=== PATIENT | female | born 1985 | race Caucasian/White ===

== ENCOUNTER 2017-05-22 05:23 | Inpatient (IN) | payer OTHER ==
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
[2017-05-22] MEDS ORDERED: ceFAZolin 2 GM/DEXTROSE 100 ML IV ONE (05:41)
[2017-05-22] MEDS ORDERED: LR 500 ML IV ONE (05:41)
[2017-05-22] MEDS ORDERED: LR 1,000 ML IV SCH (05:41)
[2017-05-22] MEDS ORDERED: CITRIC ACID/SODIUM CITRATE 30 ML UDCUP PO ONE (05:41)
[2017-05-22 05:58] LABS: PLATELET COUNT 213 10^3/uL (150-400)
[2017-05-22] MEDS ORDERED: ceFAZolin 2 GM/SWFI 2 GM/20 ML SYR IVP ONE (06:00)
[2017-05-22] MEDS ORDERED: fentaNYL 100 MCG/2 ML INJ ONE (07:55)
[2017-05-22] MEDS ORDERED: PHENYLEPHRINE HCL 100 MCG/ML SYR ONE ×2 (08:21→09:00)
[2017-05-22] MEDS ORDERED: LIDO/EPI 2% **for epidural** 20 ML SDV ONE (08:21)
[2017-05-22] MEDS ORDERED: ONDANSETRON 4 MG/2 ML VIAL ONE (09:00)
[2017-05-22] MEDS ORDERED: OXYTOCIN 100 UNITS/10 ML VIAL ONE (09:00)
[2017-05-22] MEDS ORDERED: LIDOCAINE 2% 5 ML SDV ONE (09:06)
[2017-05-22] MEDS ORDERED: DOCUSATE SODIUM 100 MG CAP PO PRN (09:20)
[2017-05-22] MEDS ORDERED: PROMETHAZINE HCL 25 MG/ML INJ IVP PRN (09:20)
[2017-05-22] MEDS ORDERED: SIMETHICONE 80 MG TAB CHEW PO PRN (09:20)
[2017-05-22] MEDS ORDERED: NALOXONE HCL 0.4 MG/ML INJ IVP PRN (09:27)
[2017-05-22] MEDS ORDERED: fentaNYL 100 MCG/2 ML INJ IVP PRN (09:27)
[2017-05-22] MEDS ORDERED: MEPERIDINE 25 MG/ML SYR IVP PRN (09:27)
[2017-05-22] MEDS ORDERED: PHENYLEPHRINE HCL 100 MCG/ML SYR IVP PRN (09:27)
[2017-05-22] MEDS ORDERED: ONDANSETRON 4 MG/2 ML VIAL IVP PRN (09:27)
[2017-05-22] MEDS ORDERED: METOCLOPRAMIDE 10 MG/2 ML VIAL IVP PRN (09:27)
--- NOTE | 2017-05-22 09:27 | PDANEPAE ---
ANE Past Medical History - Pulmonary History Hx Sleep Apnea: No Sleep Apnea Screening Result - Last Documented: Negative - Chronic Pain History Chronic Pain: No ANE Review of Systems Review of Systems: ANE Patient History - Allergies Allergies/Adverse Reactions: codeine Allergy (Verified 04/21/14 14:20) - NPO status NPO Since - Liquids (Date): 05/21/17 NPO Since - Liquids (Time): 19:45 NPO Since - Solids (Date): 05/21/17 NPO Since - Solids (Time): 19:00 - Smoking Hx Smoking Status: Never smoked ANE Labs/Vital Signs - Labs Result Diagrams: 05/22/17 05:40 - Vital Signs Blood Pressure: 127/81 Heart Rate: 100 Respiratory Rate: 16 O2 Sat (%): 97 Height: 165.1 cm Weight: 78.471 kg ANE Physical Exam - Airway Neck exam: FROM Mallampati Score: Class 1 Mouth exam: normal dental/mouth exam - Pulmonary Pulmonary: no respiratory distress, no rales or rhonchi, clear to auscultation - Cardiovascular Cardiovascular: regular rate and rhythym, no murmur, rub, or gallop - ASA Status ASA Status: II ANE Anesthesia Plan Anesthesia Plan: epidural Regional Anesthesia: TAP block (patient request eoidural not SAB, TAP blocks not duramorph for history of severe N/V)
--- NOTE | 2017-05-22 09:28 | OBDEL ---
Info Type: Primary Presentation at Delivery: Breech L&D Analgesia/Anesthesia Type: Epidural GBS+: No Intrapartum Medications: Discontinued Medications Generic Name Dose Route Start Last Admin Trade Name Martin PRN Reason Stop Dose Admin Lactated Ringer's 500 mls @ 0 mls/hr 05/22/17 05:41 05/22/17 05:45 Lr IV 05/22/17 05:42 500 mls ONCE ONE Administration As Directed - Infant Care Provider Pot Press Operator/BILLING TYPIST: Joanne Costa Indications for Delivery: Elective (breech presentation @ 39 weeks) Operative Report - Delivery Pre-op Diagnoses: IUP @ 39 weeks with breech presentation Post-op Diagnoses: same History of Prior Section: No Number of Prior Sections: 0 Nulliparous Prior to Delivery: No Indications for Prior Section: Breech, Other (Specify) Indications for Current Section: Breech Procedure: Scheduled Surgeon: Anahi Noriega Primer Inspector: Carmela Bonds Anesthesiologist: Alexa Paula Complications: None Findings: normal uterus, tubes and ovaries IV Fluid (ml): 1,200 EBL: 700 Drains: Other (Specify) (camarena UOP 500) Data ELIZ: 05/29/17 Gestational Age: 39 week(s) and 0 day(s) [place] Delivery Date: 05/22/17 Delivery Time: 08:24 Sex of Infant: Male Score (1 Min): 8 Score (5 Min): 8 ICD10 Worksheet Patient Problems: Problems Problem Status Onset Breech delivery Acute Delivery by section for breech presentation Acute Oligohydramnios Acute - ICD10 Problem Qualifiers (1) Breech delivery (2) Delivery by section for breech presentation
--- NOTE | 2017-05-22 09:29 | POSTANESTH ---
Post Anesthetic Evaluation Cardiovascular Status: Normal, Stable Respiratory Status: Normal, Stable Level of Consciousness/Mental Status: Can Participate in Eval Pain Control: Adequate, Prn Tx Ordered Nausea/Vomiting Control: Adequate, Prn Tx Ordered Complications Possibly Related to Anesthesia: None Noted
--- NOTE | 2017-05-22 09:30 | PREANESOB ---
Obstetric Pre-Anesthesia Info - General Info Proposed Procedure: csection : 2 Para: 1 ELIZ: 05/29/17 Gestational Age: 39 week(s) and 0 day(s) - Info Status: Full Term, Malpresentation Monitors: External FHR Pattern: Reassuring - Labor Status Section History: Primary Indications for Current Section: Breech Labor Epidural: Yes, No (patient requests epidural instead of spinal for csection) Anesthesia Allergies/Adverse Reactions: Allergy/AdvReac Type Severity Reaction Status Date / Time codeine Allergy Verified 04/21/14 14:20 Visit Medications: Generic Name Dose Route Start Last Admin Trade Name Freq PRN Reason Stop Dose Admin Acetaminophen 325 - 650 mg 05/22/17 09:20 Tylenol PO 11/18/17 09:19 Q3HRS PRN Pain, Mild Docusate Sodium 100 mg 05/22/17 09:20 Colace PO 11/18/17 09:19 BID PRN Constipation Ephedrine Sulfate 10 - 20 mg 05/22/17 09:27 Ephedrine Sulfate IV 05/22/17 10:28 Q5M PRN Hypotension Fentanyl 25 - 50 mcg 05/22/17 09:27 Sublimaze IVP 05/22/17 10:27 Q5M PRN Short acting pain control Hydromorphone HCl 2 - 4 mg 05/22/17 09:23 Dilaudid PO 06/01/17 09:22 Q4HRS PRN Pain, Severe Able to Take PO Lactated Ringer's 1,000 mls @ 125 mls/hr 05/22/17 05:41 Lr IV 05/23/17 05:40 CONT MERLENE Ibuprofen 600 mg 05/22/17 09:20 Motrin PO 11/18/17 09:19 Q6HRS PRN Inflammation Ketorolac Tromethamine 30 mg 05/22/17 09:20 Toradol IVP 05/27/17 09:19 Q6HRS PRN Pain, Inflammatory Meperidine HCl 12.5 - 25 mg 05/22/17 09:27 Demerol 25 Mg/Ml Syringe IVP 05/22/17 10:27 Q10M PRN shivering/rigors Metoclopramide HCl 10 mg 05/22/17 09:27 Reglan Injection IVP 05/22/17 10:27 ONCE PRN GI motility Morphine Sulfate 1 - 2 mg 05/22/17 09:27 Morphine IVP 05/22/17 10:27 Q10M PRN Pain, Severe Unable to Take PO Promethazine HCl 25 mg 05/22/17 09:20 Phenergan IVP 11/18/17 09:19 Q6HRS PRN Nausea/Vomiting, Use 1st Simethicone 80 mg 05/22/17 09:20 Mylicon PO 11/18/17 09:19 .TIDMEALS AND HS PRN Gas Discontinued Medications Generic Name Dose Route Start Last Admin Trade Name Martin PRN Reason Stop Dose Admin Citric Acid/Sodium Citrate 30 ml 05/22/17 05:41 Bicitra PO 05/22/17 05:42 ONCALL ONE Ephedrine Sulfate Confirm 05/22/17 08:21 Ephedrine Sulfate Administered 05/22/17 08:22 Dose 50 mg .ROUTE .STK-MED ONE Fentanyl Confirm 05/22/17 07:55 Sublimaze Administered 05/22/17 07:56 Dose 100 mcg .ROUTE .STK-MED ONE Lactated Ringer's 500 mls @ 0 mls/hr 05/22/17 05:41 05/22/17 05:45 Lr IV 05/22/17 05:42 500 mls ONCE ONE Administration As Directed Cefazolin Sodium 2 gm in 20 mls @ 200 mls/hr 05/22/17 06:00 Cefazolin Syringe IVP 05/22/17 06:05 ONCALL ONE Lidocaine HCl Confirm 05/22/17 09:06 Xylocaine-Mpf 2% Vial Administered 05/22/17 09:07 Dose 5 ml .ROUTE .STK-MED ONE Lidocaine/Epinephrine Confirm 05/22/17 08:21 Xylocaine 2%-Epi 1:200,000 Administered 05/22/17 08:22 Dose 20 ml .ROUTE .STK-MED ONE Ondansetron HCl Confirm 05/22/17 09:00 Zofran Administered 05/22/17 09:01 Dose 4 mg .ROUTE .STK-MED ONE Oxytocin Confirm 05/22/17 09:00 Pitocin Administered 05/22/17 09:01 Dose 100 units .ROUTE .STK-MED ONE Phenylephrine HCl Confirm 05/22/17 08:21 Neosynephrine Administered 05/22/17 08:22 Dose 1,000 mcg .ROUTE .STK-MED ONE Phenylephrine HCl Confirm 05/22/17 09:00 Neosynephrine Administered 05/22/17 09:01 Dose 1,000 mcg .ROUTE .STK-MED ONE - Vital Signs Latest Vital Signs (Nursing): Temp Pulse Resp BP Pulse Ox 37.0 C 100 16 127/81 H 97 05/22/17 06:01 05/22/17 09:27 05/22/17 09:27 05/22/17 09:27 05/22/17 09:27 Height/Weight (Nursing): Height 165.1 cm Weight 78.471 kg Labs: 05/22/17 05:40 Patient ABO/Rh O POSITIVE 05/22/17 05:40
--- NOTE | 2017-05-22 10:02 | GOP ---
[f rep st] OPERATIVE REPORT DATE OF OPERATION: 05/22/2017 SURGEON: Anahi Noriega MD SWING TYPE LATHE OPERATOR: Albina Bonds, certified nurse helpdesk technician. ANESTHESIA: Epidural. ANESTHESIOLOGIST: Dr. Alexa Paula. PREOPERATIVE DIAGNOSIS: Intrauterine at 39-0/7 weeks' gestation in breech presentation. POSTOPERATIVE DIAGNOSIS: Intrauterine at 39-0/7 weeks' gestation in breech presentation. PROCEDURE PERFORMED: Primary lower transverse section. FINDINGS: Viable male. of 8 and 8. Weight of 7 pounds 9 ounces. ESTIMATED BLOOD LOSS: 700 cc. INDICATIONS: The patient is a 31-year-old 2, para 1-0-0-1, with a last menstrual period of 0 08/21/2016, an EDC of 05/29/2017, confirmed by an 8-week ultrasound. She has had good care a [facility] since registration at 8 weeks' gestation and has had an uncomplicated course except for ultrasound diagnosed two-vessel cord and breech presentation, which was diagnosed at 36 weeks gestation. The patient was offered an attempted external cephalic version or a primary C -section. Patient declined external cephalic version and elected to have a primary at 39 w eeks. She was consented for the procedure. She understood the risks and benefits, the risks includi ng bleeding, infection, damage to internal organs, uterus, tubes, ovaries, bowel, bladder, nerves, bl ood vessels, ureters, risk of injury, risk of blood transfusion, hysterectomy, and . She understood these risks and benefits, agreed to proceed. DESCRIPTION OF PROCEDURE: Patient was taken to the operating room where she was given an epidural an esthesia, which was placed without difficulty and dosed appropriately. She was placed in the dorsal lithotomy position with a leftward tilt, and a Roa catheter was placed in her bladder. After adequ ate anesthesia was assured, a transverse skin incision was made with a scalpel and the incision was c arried down to the underlying layer of fascia with the Bovie. Fascia was incised in the midline. Fa scial incision was extended laterally with Mendez scissors. Superior aspect of the fascial incision wa s grasped with Amairani clamps, elevated, and the rectus muscles were dissected off sharply. Inferior aspect of the fascial incision was grasped with Amairani clamps, elevated, and the rectus muscles were dissected off sharply. Rectus muscles were in the midline. Peritoneum was entered sharply . Peritoneal incision was extended superiorly and inferiorly with good visualization of the bladder. Bladder blade was inserted and the vesicouterine peritoneum was grasped with the pickups and entere d sharply with Metzenbaum scissors. The incision was extended laterally, and bladder flap was create d digitally. The uterus was incised with a knife. There was clear amniotic fluid upon entry into th e uterine cavity. The baby was in sharron breech presentation. Was delivered atraumatically with kiah dard breech extraction maneuvers. The cord was wrapped around the baby's neck twice. The cord was c lamped and cut. The was handed off to the waiting nurse practitioners. Cord bloods were sent, as well as a cord blood collection. The placenta was removed manually. The uterus was ex teriorized, cleared of all clots and debris. The uterine incision was repaired with 0 Vicryl in a ru nning locked fashion. A second imbricating layer of suture was performed with 0 Vicryl and good hemo stasis was assured. The uterus was returned to the abdomen. Gutters were cleared of all clots and d ebris. Reinspection of the uterine incision revealed a small area of bleeding on the inferior portio n. This was made hemostatic with [id number] suture of 0 Vicryl and good hemostasis was assured. The rectus muscles were approximated with 2-0 Vicryl in inverted mattress fashion. The fascia was closed with #1 Vicryl in a running fashion. Subcutaneous layer was closed with 2-0 Vicryl, and the s kin was closed with 4-0 Vicryl. The patient tolerated the procedure well. Sponge, lap, needle, and instrument counts were correct x3. The patient went to the recovery room in good condition. FLUID REPLACEMENT: 1200 cc. URINE OUTPUT: 500 cc. /[id number]/MODL
[2017-05-22] MEDS: KETOROLAC 30 MG/1 ML SDV IVP PRN ×3 (11:00→22:57)
[2017-05-22] MEDS: ACETAMINOPHEN 325 MG TAB PO PRN (15:10)
[2017-05-22] MEDS ORDERED: POLYETHYLENE GLYCOL 3350 17 GM PKT PO PRN (18:25)
[2017-05-22] MEDS ORDERED: MAGNESIUM HYDROXIDE 30 ML UDCUP PO PRN (18:25)
[2017-05-22] MEDS ORDERED: LACTULOSE 20 GM/30 ML UDCUP PO PRN (18:25)
[2017-05-22] MEDS ORDERED: BISACODYL 10 MG SUPP PR PRN (18:25)
[2017-05-22] MEDS: HYDROmorphONE/DILAUDID 2 MG TAB PO PRN ×3 (18:36→23:21)
[2017-05-22] MEDS: ONDANSETRON 4 MG/2 ML VIAL IVP PRN ×2 (18:37→23:21)
[2017-05-22] MEDS: SENNOSIDES/DOCUSATE SODIUM TAB PO SCH (20:03)
[2017-05-23] MEDS: HYDROmorphONE/DILAUDID 2 MG TAB PO PRN ×7 (03:20→23:39)
[2017-05-23] MEDS: ONDANSETRON 4 MG/2 ML VIAL IVP PRN ×2 (03:20→07:31)
[2017-05-23] MEDS: KETOROLAC 30 MG/1 ML SDV IVP PRN ×2 (05:08→11:36)
--- NOTE | 2017-05-23 10:43 | OBPP ---
Progress Note Assessment/Plan: Assessment: 1) s/p PCS secondary to malpresentation POD #1 - pt is stable 2) Anemia - pt is asymptomatic Plan: Continue routine 05/23/17 10:42 Objective: 05/23/17 03:30 Patient ABO/Rh O POSITIVE 05/22/17 05:40 Temp Pulse Resp BP Pulse Ox 36.7 C 86 18 101/68 95 05/23/17 03:30 05/23/17 05:13 05/23/17 05:13 05/23/17 03:30 05/23/17 05:13
[2017-05-23] MEDS ORDERED: ONDANSETRON DISINTEGRATING 4 MG TAB PO PRN (10:48)
--- NOTE | 2017-05-23 10:52 | OBPP ---
Progress Note Assessment/Plan: Assessment: 1) s/p PCS secondary to malpresentation POD #1 - pt is stable 2) Anemia - pt is asymptomatic Plan: Continue routine post-op care Encourage ambulation Cont Dilaudid po and Zofran prn Pt may shower Will start iron Plan for d/c in 48 hours 05/23/17 10:49 Subjective/ Course: 05/23/17 10:50 Pt seen and examined. Pt is on the side of the bed and just had her camarena removed. Feeling better than yesterday. Pain is well controlled with Dilaudid. Also taking Zofran. Pt has not been OOB yet, mercedes regular diet, has not voided yet, passing flatus. Denies any f/c/n/v/CP or SOB. BF without difficulty so far. Objective: 05/23/17 03:30 Patient ABO/Rh O POSITIVE 05/22/17 05:40 Temp Pulse Resp BP Pulse Ox 36.7 C 86 18 101/68 95 05/23/17 03:30 05/23/17 05:13 05/23/17 05:13 05/23/17 03:30 05/23/17 05:13 Uterine Position/Fundal Height: Umbilicus -1 Uterine Tone: Firm Physical Exam - Physical Exam Respiratory: lungs clear, normal breath sounds Cardiac/Chest: regular rate, rhythm Abdomen: normal bowel sounds, non-tender, soft, flatus (+), incision (C/D/I with steri strips), other (Appropriate tendernesd) Extremities: non-tender, normal inspection Skin: normal color, warm/dry Neuro/Psych: alert, normal mood/affect, oriented x 3
[2017-05-23] MEDS: ONDANSETRON DISINTEGRATING 4 MG TAB PO PRN ×3 (15:38→23:39)
[2017-05-23] MEDS: SENNOSIDES/DOCUSATE SODIUM TAB PO SCH ×2 (15:42→19:37)
[2017-05-23] MEDS: IBUPROFEN 600 MG TAB PO PRN ×2 (17:49→23:39)
[2017-05-23] MEDS: ACETAMINOPHEN 325 MG TAB PO PRN (19:19)
[2017-05-23] MEDS: IRON POLYSAC/IRON HEME 28 MG TAB PO SCH (19:37)
[2017-05-24] MEDS: ONDANSETRON DISINTEGRATING 4 MG TAB PO PRN ×5 (04:38→21:07)
[2017-05-24] MEDS: HYDROmorphONE/DILAUDID 2 MG TAB PO PRN ×5 (04:38→21:08)
[2017-05-24] MEDS: IBUPROFEN 600 MG TAB PO PRN ×3 (06:48→20:18)
[2017-05-24] MEDS: IRON POLYSAC/IRON HEME 28 MG TAB PO SCH ×2 (08:53→21:07)
[2017-05-24] MEDS: SENNOSIDES/DOCUSATE SODIUM TAB PO SCH ×3 (08:53→21:07)
--- NOTE | 2017-05-24 15:29 | OBPP ---
Progress Note Assessment/Plan: Assessment: 31 y/o POD #2 s/p LTCS secondary to breech doing well. Plan: Bowel protocol today and support. Continue po Dilaudid and Zofran prn. Likely d/c home tomorrow. 05/24/17 15:28 Subjective/ Course: 05/24/17 15:26 Pt is feeling better today. She is finally feeling good pain control with PO Dilaudid and Zofran ODT in combination. She is ambulating and voiding without difficulty and baby is doing well. Breast feeding is going well. She has min lochia and is voiding and passing flatus but no BM yet. Objective: 05/23/17 03:30 Patient ABO/Rh O POSITIVE 05/22/17 05:40 Temp Pulse Resp BP Pulse Ox 36.7 C 98 17 107/72 95 05/24/17 09:00 05/24/17 09:00 05/24/17 09:00 05/24/17 09:00 05/24/17 09:00 Uterine Position/Fundal Height: Umbilicus -2 Uterine Tone: Firm Physical Exam - Physical Exam General Appearance: alert, no apparent distress Neck: non-tender, full range of motion, supple Respiratory: chest non-tender, lungs clear, normal breath sounds Cardiac/Chest: regular rate, rhythm Abdomen: normal bowel sounds, incision (c/d/i) Extremities: swelling (tr), Micha's sign (neg)
[2017-05-24 21:29] VITALS: RESP 16
[2017-05-25] MEDS: HYDROmorphONE/DILAUDID 2 MG TAB PO PRN ×4 (01:08→12:50)
[2017-05-25] MEDS: ONDANSETRON DISINTEGRATING 4 MG TAB PO PRN ×3 (01:08→09:32)
[2017-05-25] MEDS: IBUPROFEN 600 MG TAB PO PRN ×2 (02:33→08:51)
[2017-05-25 09:01] VITALS: BP 105/68; PULSE 98; TEMP 97.6; O2SAT 95
--- NOTE | 2017-05-25 09:22 | OBPP ---
Progress Note Assessment/Plan: Assessment:nipples intact denies pain with ff@u scant rubra lochia incision well approximated passing gas voiding without difficulty Plan:discharge to home with instructions , bleeding patterns, ss infection, depression, pain management, depression, no driving x 2 weeks rest, fu 2 weeks 4 weeks and 6 weeks ok with plan of care 05/25/17 09:20 Subjective/ Course: 05/24/17 15:26 Pt is feeling better today. She is finally feeling good pain control with PO Dilaudid and Zofran ODT in combination. She is ambulating and voiding without difficulty and baby is doing well. Breast feeding is going well. She has min lochia and is voiding and passing flatus but no BM yet. 05/25/17 09:19 Doing well denies difficulties. Pain well managed. Denies difficulties. Voiding well. Passing gas Objective: 05/23/17 03:30 Patient ABO/Rh O POSITIVE 05/22/17 05:40 Temp Pulse Resp BP Pulse Ox 36.4 C 98 16 105/68 95 05/25/17 08:57 05/25/17 08:57 05/25/17 08:57 05/25/17 08:57 05/25/17 08:57 Uterine Position/Fundal Height: At Umbilicus Uterine Tone: Firm Physical Exam - Physical Exam General Appearance: WD/WN, alert, no apparent distress Respiratory: chest non-tender, lungs clear, normal breath sounds Cardiac/Chest: regular rate, rhythm Abdomen: normal bowel sounds Extremities: normal range of motion, Micha's sign (negative bilaterally) DTR- Lower Extremities: Knee (R): 1+, Knee (L): 1+ (no clonus bilaterally) Skin: normal color, warm/dry Neuro/Psych: no motor/sensory deficits, alert, normal mood/affect, oriented x 3
--- NOTE | 2017-05-25 09:24 | OBGCSDC ---
General Delivery Information - General Info : 2 Para: 2 Abortions: 0 Type: Primary L&D Analgesia/Anesthesia Type: Epidural Admission Date: 05/22/17 Labs: Patient ABO/Rh O POSITIVE 05/22/17 05:40 Hct 29.7 % (38.0-47.0) L D 05/23/17 03:30 - Hospital Course Antepartum: No prenancy difficultys other than breech presentation 05/25/17 09:23 : 05/24/17 15:26 Pt is feeling better today. She is finally feeling good pain control with PO Dilaudid and Zofran ODT in combination. She is ambulating and voiding without difficulty and baby is doing well. Breast feeding is going well. She has min lochia and is voiding and passing flatus but no BM yet. 05/25/17 09:19 Doing well denies difficulties. Pain well managed. Denies difficulties. Voiding well. Passing gas Vaginal - Delivery Provider Delivery Physician/CNM: Anahi Noriega - Delivery Providers Surgeon: Anahi Noriega Licensed Physical Therapist Assistant: Carmela Bonds Anesthesiologist: Alexa Paula - Delivery Number of Prior Sections: 0 Indications for Current Section: Breech Surgical Procedures: Scheduled Intra-op Complications: None EBL: 700 Data ELIZ: 05/29/17 Gestational Age: 39 week(s) and 3 day(s) [place] Delivery Date: 05/22/17 Delivery Time: 08:24 Sex of Infant: Male Weight (gm): 3440 g Score (1 Min): 8 Score (5 Min): 8
[2017-05-25] MEDS: SENNOSIDES/DOCUSATE SODIUM TAB PO SCH (09:28)
[2017-05-25] MEDS: IRON POLYSAC/IRON HEME 28 MG TAB PO SCH (09:28)
== END 2017-05-25 13:00 | disposition home or self-care (01) | DRG 766 ==
LOC: FLD 05:23 → FOB 12:34
PROVIDERS: ADMIT Obstetrics & Gynecology; ATTEND Obstetrics & Gynecology
PROC: 10D00Z1 Extraction of Products of Conception, Low, Open Approach (ICD-10-PCS; principal; 2017-05-22)
DX: O32.1XX0 Maternal care for breech presentation, not applicable or unspecified (principal); Z3A.39 39 weeks gestation of pregnancy; D64.9 Anemia, unspecified; O99.03 Anemia complicating the puerperium; Z37.0 Single live birth
CPT/HCPCS: J0690; J1885; J2370; J2405; J2590; J3010